=== PATIENT | male | born 1970 | race African-American/Black ===

== ENCOUNTER 2023-03-03 09:40 | Emergency (ER) | payer BC, OTHER ==
[2023-03-03 09:53] VITALS: BP 134/78; PULSE 55; RESP 15; TEMP 98; BMI 25.7
== END 2023-03-03 10:57 | disposition home or self-care (01) ==
LOC: FER 09:40
DX: L03.211 Cellulitis of face (principal); L53.9 Erythematous condition, unspecified; R22.0 Localized swelling, mass and lump, head
CPT/HCPCS: 99283-25

== ENCOUNTER 2023-05-02 18:42 | Emergency (ER) | payer BC ==
[2023-05-02 19:09] VITALS: BP 119/67; PULSE 86; RESP 16; TEMP 98; BMI 27.3
== END 2023-05-02 20:28 | disposition home or self-care (01) ==
LOC: FER 18:42
DX: H93.8X2 Other specified disorders of left ear (principal); H61.22 Impacted cerumen, left ear
CPT/HCPCS: 99282-25